=== PATIENT | female | born 2000 | race Caucasian/White ===

== ENCOUNTER 2025-04-20 12:11 | Outpatient (REF) | payer BC, SELFPAY ==
--- OUTSIDE RECORDS SUMMARY | 2025-04-20 12:14 | XMS_ITS | Clinical Summary ---
Author Organization [facility] [place] [address] Care Team Providers Care Orthotic Technician Name Role Phone Unavailable Primary Care Provider Unavailabl e Social History Tobacco Use Types Packs/Day Years Used Date Smoking Tobacco: Never Assessed Comments Unknown Sex and Gender Information Value Date Recorded Sex Assigned at Not on file Legal Sex Female 4:43 AM EST Gender Identity Female 05/23/2024 4:49 PM EDT Sexual Orientation Not on file Plan of Treatment Health Maintenance Due Date Last Done Comments Gonorrhea/Chlamydia Screening 2002 HPV Vaccines (1 - 3-dose series) 2017 Meningococcal B Vaccine (1 o f 2 - Standard) 2018 DTaP,Tdap,and Td Vaccines (1 - Tdap) 2021 Hepatitis B Vaccines (1 of 3 - 19+ 3-dose series) 2021 Cervical Cancer Screening: P ap Smear 2023 COVID-19 Vaccine (1 - 2023-2 5 season) 2024 Depression Screening 09/27/2024 Influenza Vaccine (#1) 2025 HIB Vaccines Aged Out No longer eligi ble based on patient's age to complete this topic Hepatitis A Vaccines Aged Out No long er eligible based on patient's age to complete this topic IPV Vaccines Aged Out No longer eligi ble based on patient's age to complete this topic MMR Vaccines Aged Out No longer eligi ble based on patient's age to complete this topic Meningococcal ACWY Vaccine Aged Out N o longer eligible based on patient's age to complete this topic Pneumococcal Vaccine: Pediat rics (0 to 5 Years) and At-Risk Patients (6 to 49 Years) Aged Out No longer eligible b ased on patient's age to complete this topic RSV Immunization Patients Un jaye 20 months Aged Out No longer eligible b ased on patient's age to complete this topic Varicella Vaccines Aged Out No longer eligible based on patient's age to complete this topic
--- OUTSIDE RECORDS SUMMARY | 2025-04-20 12:14 | XMS_ITS | Clinical Summary ---
Author Organization [facility]' Address [address] [place] [address] Phone Care Team Providers Care Java [id number] Application Developer Name Role Phone Unavailable Primary Care Provider Unavailabl e Allergies No known active allergies Medications albuterol HFA (VENTOLIN HFA) 108 (90 Base) MCG/ACT inhalerIndicati ons:Asthma, unspecified asthma severity, unspecified whether complicated, unspecified whether persistent Inhale 2 puffs every 4 (four) hours as needed for wheezing or shortness of breath. 1 Units 9 Active Levonorgestrel (MIRENA, 52 MG, IU) 52 mg by Intrauterine route. Active sertraline 50 MG tabletIndicatio ns:Depression with anxiety Take 1 tablet (50 mg total) by mouth daily. 90 tablet 2 2 Active cyclobenzaprine 10 MG tabletIndicatio ns:Chronic bilateral low back pain without sciatica Take 1 tablet (10 mg total) by mouth 3 (three) times a day as needed for muscle spasms for up to 7 days. 21 tablet 2 Active Sodium Chloride-Sodium Bicarb (Classic Neti Pot Sinus Wash) 2300-700 MG kitIndications: Sinusitis in pediatric patient Use as needed for sinus pressure 1 kit 1 2 Active Active Problems Problem Noted Date Diagnosed Date Personal history of COVID-19 08/26/2022 Overview (08/26/2022): 06/2022 Depression with anxiety 06/24/2017 Assessment & Plan (11/13/2021 10:12 AM EST): Will increase to 50 mg sertraline. No safety concerns Assessment & Plan (09/01/2021 10:39 AM EST): Restarted sertraline at 25 mg, may increase to 50 mg (old dose) after tolerating the 25 mg. Will make appt with integrated clinician Stevenson Assessment & Plan (07/11/2020 1:51 PM EDT): Doing very well but advised that irritability can be manifestation of depression and anxiety and med may have been more helpful than she realized. Happy to have her re-start if it becomes problematic. Also gave some advice on increasing attention span when she is doing 100% online schooling Assessment & Plan (03/11/2020 4:22 PM EDT): Advised that it is essential that an evaluation for safety be performed. Scheduled an appt with integrated therapist for tomorrow, advised if she's not willing to come will have [facility] mobile crisis unit reach out. Exercise-induced bronchospasm 01/14/2017 Overview (09/13/2018): 10/09 SOB with exercise, trial albuterol prior to basketball Assessment & Plan (09/01/2021 9:49 AM EST): No current or recent concerns Assessment & Plan (03/23/2019 2:08 PM EDT): No current or recent symptoms Functional abdominal pain syndrome 01/14/2017 Overview (09/13/2018): constipation 10/23/09 started on miralax, KUB 11/06 showed moderate to large stool; 10/08; abdominal pain (ER) 12/06; seen by GI 01/06 (functional). started on amitryptalline Assessment & Plan (02/13/2022 9:52 AM EDT): Doing overall well, continue this dose of sertraline. Suggested try to eat main meal midday rather than late at night before bed to help with first thing in the morning looser stools Assessment & Plan (03/23/2019 2:08 PM EDT): No current or recent issues BMI 37.0-37.9, adult 01/14/2017 Assessment & Plan (09/01/2021 9:48 AM EST): Encouraged healthy eating and more regular vigorous physical activity Assessment & Plan (03/23/2019 2:09 PM EDT): Encouraged continued healthy food and exercise choices Immunizations Immunization Administration Dates Next Due COVID-19 Pfizer, analilia-sucros e, 12+ years 02/13/2022 DTaP 11/07/2007, 4,06/05/2003,03/20,01/09/2003 HPV Vaccine 9 Valent 02/01/2018,01/14/2017 Hep A, ped/adol 02/01/2018,01/14/2017 Hep B, ped/adol 08/07/2003,2002,2002 Hib (PRP-T) 02/14/2004, 3,03/20/2003,01/09 IPV 11/07/2007, 3,03/20/2003,01/09 Influenza 11/10/2004,07/10/2004 Influenza, injectable, quadrivalent 05/29,08/09/2013,07/12/2012,07/01 Influenza, injectable, quadr ivalent, preservative free 09/01/2021,07/11/2020,08/10/2019,09/13,07/23/2016,07/15/2015,07/10/2014 ,10/28/2011 MMRV 11/08/2006,11/19/2003 Meningococcal Conj (Menactra) MCV4P 03/23/2019,0 11/14/2013 Pneumococcal Conjugate 07/10/2004,2002,03/20/2003,01/09 Tdap 11/14/2013 Family History Medical History Relation Name Comments Hyperlipidemia Maternal Grandfather Relation Name Status Comments Father Alive Maternal Grandfather Alive Maternal Grandmother Alive Mother Alive Healthy Paternal Grandfather Alive Paternal Grandmother Alive Social History Tobacco Use Types Packs/Day Years Used Date Smoking Tobacco: Never Smokeless Tobacco: Never Alcohol Use Standard Drinks/Week Comments Never 0 (1 standard drink = 0.6 oz pur e alcohol) Hunger/Food Answer Date Recorded In the last 12 months, did y ou or your family ever eat less than you felt you should because there wasn't enough money for food? No 09/01/2021 Stable Housing Answer Date Recorded Are you worried that in the next 2 months you may not have stable housing? No 09/01/2021 Transportation Concerns Answer Date Rec orded In the last 12 months, have you or your family ever had to go without healthcare because you didn't have a way to get there? No 09/01/2021 Hazards in Home Answer Date Recorded Think about the place you li ve. Do you have problems with any of the following? Pests (mice or roaches), mold, no/not working smoke detectors, water leaks, no window guards. No 2020 Financing Utilities Answer Date Recorde d In the last 12 months, has t he electric, gas, oil, or water Tesaris threatened to shut off your services in your home? No 09/01/2021 Safety at Home Answer Date Recorded Are you or your family worried about feeling saf e in your home? No 09/01/2021 Outside Support Answer Date Recorded Do you feel that you need mo re support from other people or programs to help you care for yourself or your family? No 09/01/2021 Understanding Health Concerns Answer Da te Recorded Do you need help understandi ng your or your child's healthcare needs (diagnosis, medications, plan, etc.)? No 09/01/2021 Financing Health Concerns Answer Date R ecorded In the last 12 months, was t here a time when your child needed to see a doctor or get medications or supplies but could not because of cost? No 09/01/2021 Missing School or Work Answer Date Ortiz rded Did you or your child miss s chool or work because of a health problem that could have been avoided? No 09/01/2021 Comments No Sex and Gender Information Value Date Recorded Sex Assigned at Female 09/01/2021 9:36 AM EST Legal Sex Female 6:09 PM EDT Gender Identity Female 09/01/2021 9:36 AM EST Sexual Orientation Not on file Last Filed Vital Signs Vital Sign Reading Time Taken Comments Blood Pressure 138/84 05/28/2022 5:34 PM EDT Pulse 108 10/19/2019 8:32 AM EST Temperature 36 C (96.8 F) 08/26/2022 1:28 PM EST Respiratory Rate - - Oxygen Saturation 99% 10/19/2019 8:32 AM EST Inhaled Oxygen Concentration - - Weight 116 kg (256 lb) 08/26/2022 1:28 PM EST Height 175.3 cm (5' 9 ) 05/28/2022 5:34 PM EDT Body Mass Index 37.8 05/28/2022 5:34 PM EDT Plan of Treatment Health Maintenance Due Date Last Done Comments Men B Vaccine (1 of 2 - Standard) 2018 DTaP,Tdap,and Td Vaccines (7 - Td or Tdap) 11/14/2023 11/14/2013, 11/07/2007, 02/14/2004, Additional history exists COVID-19 Vaccine (4 - 2023-2 5 season) 2024 02/13/2022, 08/20/2021, 07/30/2021 Influenza Vaccines (#1) 2025 09/01/20, 07/11/2020, 08/10/2019, Additional history exists Hepatitis B Vaccines Completed 08/07/2003, 2002, 2002 HIB Vaccines Completed 02/14/2004, 05/2003, 03/20/2003, Additional history exists Pneumococcal Vaccine Completed 07/10/2004, 06/05/2003, 03/20/2003, Additional history exists MMR Vaccines Completed 11/08/2006, 11/19/2003 Varicella Vaccines Completed 11/08/2006, 11/19/2003 IPV Vaccines Completed 11/07/2007, 07/28, 03/20/2003, Additional history exists HPV Vaccines Completed 02/01/2018, 01/14/2017 Hepatitis A Vaccines Completed 02/01/2018, 01/15/20 17 Meningococcal Vaccine Completed 03/23/2019, 014 Procedures * Due to [place] state law, this organization might not be sharing sensitive test results. Procedure Name Priority Date/Time Associated Diagnosis Comments CHLAMYDIA AND GONORRHEA, AMPLIFIED Routine 09/01/2021 10:11 AM EST Encounter for screening examination for sexually transmitted disease from Last 3 Months or Most Recently Relevant to Health Maintenance Results * Due to [place] state law, this organization might not be sharing sensitive test results. * Chlamydia and Gonorrhoea, Amplified (Urine) (09/01/2021 10:11 AM EST) Chlamydia Trachomatis, DNA Probe NEGATIVE (NEG) [facility] Comment: No Chlamydia Trachomatis RNA detected in this patient's sample (REFERENCE RANGE/NORMAL VALUE: NOT DETECTED) Note: This test uses senior grants officer- mediated amplification method to detect rRNA from C. Trachomatis URINE GC AMP PROBE NEGATIVE (NEG) [facility] Comment: No Neisseria Gonorrhoeae RNA detected in this patient's sample (REFERENCE RANGE/NORMAL VALUE: NOT DETECTED) NOTE: This test uses senior grants officer-mediated amplification method to detect rRNA from N.Gonorrhoeae. A negative result does not preclude infection. In the case of a negative urine result, testing of an endocervical(female) or urethral (male) specimen is recommended if there is high clinical suspicion of infection. Due to very high sensitivity of Nucleic Acid Amplification Test, false positive results may occur. Therefore, specimen handling is extremely important. In patients in whom the disease is unlikely, additional sample for testing should be considered after an initial positive result. The performance characteristics of this test have not been evaluated in children. The Aptima Combo2 assay is not intended for the evaluation of suspected sexual abuse or for other medico-legal indications. The ordering provider should assess if the patient had consensual sex without risk of sexual abuse. Consult the [facility] if needed. Contact phone number . Therapeutic failure or success cannot be determined with the Aptima Combo2 assay since nucleic acid may persist following appropriate antimicrobial therapy. The Centers for Disease Control and Prevention (CDC) recommends confirmatory retesting using culture or a different nucleic acid amplification test when positive results occur, if indicated. Testing performed or reported by [facility], a Service of [facility], [address] [place] [address] Leo Davison MD, Manager Food Beverage [facility]# [id number] Urine (Urine, Random (not clean void)) 09/01/2021 10:11 AM EST 09/01/2021 9:25 PM EST Ester Hernandez MD LAB MICROBIOLOGY - GENERAL ORDER [facility] Final Result [facility] from Last 3 Months or Most Recently Relevant to Health Maintenance Insurance HMO HMO [facility] HMO [facility] HMO
--- NOTE | 2025-04-20 12:18 | ECG_ITS ---
Test Reason : QT PROLONGATION Blood Pressure : */* mmHG Vent. Rate : 70 BPM Atrial Rate : 70 BPM P-R Int : 164 ms QRS Dur : 92 ms QT Int : 394 ms P-R-T Axes : 31 13 17 degrees QTcB Int : 425 ms Normal sinus rhythm with sinus arrhythmia Normal ECG No previous ECGs available Referred By: Salma Schultz Electronically Signed By: Lazarus Shelton
[2025-04-20 12:35] LABS: MANUAL DIFF FLAG NO
[2025-04-20 13:13] LABS: Hematocrit 41.4 % (37.0-47.0); Hemoglobin 13.6 g/dl (12.0-16.0); Imm Gran Abs Auto 0.04 X10*3/uL (0.00-0.03); Imm Gran Pct Auto 0.5 % (0.0-0.4); Lymphocytes Absolute Auto 2.8 X10*3/uL (1.2-4.9); Mean Corpuscular HGB Conc 32.9 g/dl (31.0-35.0); Mean Corpuscular Hemoglobin 27.5 pg (27.0-33.0); Mean Corpuscular Volume 83.8 fL (80.0-98.0); NRBC Abs Auto 0.000 X10*3/uL (0.0-0.012); NRBC Pct Auto 0.0 /100WBC (0.0-0.2); Platelet Count 442 X10*3/uL (160-400); Red Blood Count 4.94 X10*6/uL (4.20-5.50); White Blood Count 8.8 X10*3/uL (4.8-10.8)
[2025-04-20 13:26] LABS: Hemoglobin A1C 116.0065 umol/L; Total Hemoglobin (HGBA1C) 3495.8036 umol/L
[2025-04-20 13:53] LABS: Alanine Aminotransferase 36 U/L (0-31); Albumin Level 4.3 g/dL (3.5-5.0); Alkaline Phosphatase 73 U/L (39-117); Anion Gap 10 (12-20); Aspartate Amino Transferase 23 U/L (5-31); Blood Urea Nitrogen 12 mg/dL (9-16); Calcium 9.2 mg/dL (8.4-10.2); Carbon Dioxide 26 mmol/L (22-29); Chloride 109 mmol/L (96-108); Cholesterol 206 mg/dL (<200); Estimated Glomerular Filt Rate > 60; HDL Cholesterol 38 mg/dL (>40); Iron 50 mcg/dL (30-160); Magnesium 2.0 mg/dL (1.6-2.6); Percent Iron Saturation 16 % (15-50); Potassium 4.2 mmol/L (3.3-5.1); Sodium 141 mmol/L (135-145); Total Iron Binding Capacity 319 mcg/dL (228-428); Total Protein 7.7 g/dL (6.5-8.0); Triglycerides 78 mg/dL (<150); Unsaturated Iron Binding 269 ug/dL
[2025-04-20 14:01] LABS: Free T4 (Free Thyroxine) 0.88 ng/dL (0.71-1.85); Thyroid Stimulating Hormone 3.15 uIU/mL (0.32-4.0)
[2025-04-20 14:14] LABS: Folate 5.5 ng/mL (> or = 4.0); Vitamin B12 508 pg/mL (200-900)
== END 2025-04-20 12:12 | disposition home or self-care (01) ==
LOC: HO.LAB 12:11
PROVIDERS: PCP Nurse Practitioner Family; Visit Provider Psychiatry & Neurology Psychiatry
DX: Z13.89 Encounter for screening for other disorder (principal)
CPT/HCPCS: 36415; 80053; 80061; 82306; 82607; 82746; 83036; 83090; 83540; 83735; 84425; 84439; 84443; 85025; 85652; 86140; 93005

== ENCOUNTER → 2025-04-20 12:18 | Outpatient (BNV) | payer BC, SELFPAY | PROVIDERS: PCP Nurse Practitioner Family; Visit Provider Internal Medicine Cardiovascular Disease | DX: Z13.6 Encounter for screening for cardiovascular disorders (principal) | CPT/HCPCS: 93010 ==

== ENCOUNTER 2025-04-30 10:45 | Outpatient (RCR) | payer BC, SELFPAY ==
--- NOTE | 2025-04-18 11:41 | PC.NURSE ---
Per Integrative Assessment Yue, is a 24 year old partnered,Citizen Of [place] speaking,? female who was referred to [facility] through [facility] Crisis services.Per [facility] assessment :? The Patient met with crisis services on 04/11/2025 after her mother referred the patient for an assessment due to concerns regarding passive suicidal? ideation and? worsening depressive symptoms. The patient reported frequent tearfulness,sadness and miserable all the time.? The patient reports that she has been experiencing emotional distress related to recent losses of her grandfather and the passing of her cat. These events have resurfaced unresolved trauma associated with her fathers absence during her childhood. 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 The patient presented with a guarded affect and provided limited information. The patient continues to endorses symptoms depression,anxiety,including,anhedonia,hopelessness,helplessness,sleeping too much 12 plus hours,having no energy or motivation,overeating ,low self worth. The patient denies suicidal ideation,plan or intent however,she stated I don't want to live like this The patient denies a hx of suicide attempts or gestures,she denies? a hx of self harming behavior.? During admission assessment pt is pleasant and cooperative, however pt presents as slightly anxious and guarded. She states she is here at [facility] to learn coping skills
[2025-04-18 11:56] VITALS: BP 128/76; PULSE 86; RESP 18; TEMP 37.1
--- NOTE | 2025-04-19 12:07 | P.HPPSP_ITS ---
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 She was referred to [facility] through crisis after a home visit 3 weeks ago for complaints of anxiety and depression in context of psychosocial stressors and recent losses of her grandfather and cat. She reports since then she has met with a therapist 2 times. The depression comes and goes...started back when I was 10 years old , describes sometimes getting very irritable, can lash out (verbally) at others, extreme lack of motivation. Had difficulties applying herself to school unless subjects were of her personal interest. Anxiety low grade chronic and generalized, mostly pertaining to school assignments and responsibilities. Low frustration tolerance, distractibility, poor attention and focus, and noting things generally take her much longer to complete than her peers. She identifies as a worry wart... constantly worrying about stuff and specifically mentions chronic issues with task management and procrastination. Issues have had considerable impact on productivity and agency. Chronic concerns about self worth and inconsistency in maintaining structure, habits. Some days just difficult to get out of bed . She is not currently on any medication, but had been treated on Prozac and Wellbutrin which she has been off of now for 2 months, with no appreciable difference aside from Prozac being modestly helpful with social anxiety. Occasional alcohol use in moderation. Denies any other illicit substance use history. Denies any other current substance use. Denies any symptoms of onesimo/hypomania. Denies AH, VH or paranoid or aberrant thoughts. No mention of history suggestive of bipolar affective or psychotic spectrum disorders. Past Psychiatric History: No prior IPLOC, PHP, respite, detox/rehab admissions SA: denies SIB: denies Aggression or antisocial behaviors: denies Denies legal history Pertinent developmental hx: Previous diagnoses: ADHD Psychiatrist: no Therapist: Silvia Ortiz PCP: Renee Sharma NP Previous trials: Prozac (up to 60 mg) x 6 months (2024) helped with social anxiety but not with mood, Wellbutrin (up to 150 mg) x 3 months (2024), Zoloft CURRENT MEDICATIONS: none PMFSH Medical History (Updated 04/24/25 @ 18:19 by Salma Schultz MD) ADD (attention deficit disorder) Narrative: Overall healthy Obesity - trtmt Wegovy No chronic health conditions No h/o medical hospitalization for illness or injury SH: knee surgery 2017 Seizures: denies Concussions/TBI: denies Nulligravid G0 LMP: on IUD Ht:?5' 10 Wt:?250 lbs ALL:?NKDA Family History: Depression, anxiety maternal side Addiction on paternal side Social History: Single, unmarried, no children Lives alone 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 Substance History: Occasional alcohol use - since age 23, last use 2 months ago. Denies any hx of overuse, binge-drinking or problematic patterns. No black outs or DUIs. No other substance use history Trauma History: Issues with abandonment, father left the home when she was 5 Meds/Allergies Allergies Allergies Allergy/AdvReac Type Severity Reaction Status Date / Time No Known Allergies Allergy Verified 04/18/25 11:43 Mental Status Exam Mental Status Exam Narrative: Alert, oriented, in no acute distress. Calm, cooperative, engaged. No psychomotor agitation or neurovegetative retardation. Eye contact maintained. Mood anxious, depressed, affect variable, mood congruent. Speech normal. Thought process linear, coherent. Thought content related to stressors, denies any hopelessness or SI. Denies any aggressive ideation or HI. No paranoia or delusional content elicited. No evidence of psychosis. Insight and judgment - fair but adequate. Assessment & Plan Assessment & Plan (1) Depression: Status: Acute Code(s): F32.A - Depression, unspecified (2) Anxiety: Status: Acute Code(s): F41.9 - Anxiety disorder, unspecified (3) ADD (attention deficit disorder): Status: Acute Code(s): F98.8 - Other specified behavioral and emotional disorders with onset usually occurring in childhood and adolescence Plan Admit to [facility] VS reviewed: afebrile, BP 128/76 ;? 86 bpm no medications for now We discussed chronic symptoms in context of what is likely undiagnosed ADD, we have begin exploring treatment options, which patient is considering. We also discussed starting lamotrigine for depression, irritablity given lack of responses to conventional treatment with antidepressant medications. Routine lab work as indicated EKG, routine for baseline QTc for medication considerations as indicated UDS as indicated MassPat reviewed Continue to monitor as per protocol Patient educated on: diagnosis and medication risk/benefits Informed Consent: understands Reason for continued partial hosp. stay Substantial Risk for: inability to function and med/psych decompensation Certification I certify that partial hospital treatment is medically necessary due to the symptoms and problems resulting from the patient's mental illness and the failure to treat the patient at the partial hospital level of care would likely result in the patient requiring inpatient psychiatric care which could not be prevented at a less intensive level of care. Time Spent With Patient Time: Total time managing care of this patient today __60__ minutes.
--- NOTE | 2025-04-20 15:06 | HO.PHP ---
PHP admin, Mago, informed the team that Yue will not be in attendance to program due to being sick.
--- NOTE | 2025-04-27 15:34 | HO.PHP ---
PHP staff member faxed over a referral for med management for Yue to [facility]. PHP staff member is awaiting a phone call with the appointment dates and times.
--- NOTE | 2025-05-02 07:44 | PM.EVENT ---
Event Note Date of Service: 04/24/25 Event Note: Checked in by phone after program today. The same just struggling to get by. My mood feels okay, maybe a little depressed... just comes and goes, but more like I'm just always stuck . We had previously discussed chronic symptoms in context of what is likely undiagnosed ADD, began exploring treatment options, which patient is agreeable. Will plan to start Vyvanse 10 mg qd and guanfacine ER 1 mg daily. SHe is also agreeable to starting lamotrigine to target mood reactivity, depression, situational irritability. Time Spent With Patient Time: Total time managing care of this patient today __30__ minutes.
--- NOTE | 2025-05-02 07:54 | PM.EVENT ---
Event Note Date of Service: 04/24/25 Time Spent With Patient Time: Total time managing care of this patient today ____ minutes.
== END 2025-04-30 23:59 | disposition home or self-care (01) ==
LOC: HO.PHPA 10:45
PROVIDERS: Visit Provider Psychiatry & Neurology Psychiatry
DX: F33.9 Major depressive disorder, recurrent, unspecified (principal); F41.9 Anxiety disorder, unspecified; F98.8 Other specified behavioral and emotional disorders with onset usually occurring in childhood and adolescence
CPT/HCPCS: 90791; 90853